=== PATIENT | female | born 1990 | race American Indian/Alaskan Native ===

== ENCOUNTER 2019-09-05 11:38 | Emergency (ER) | payer SELFPAY ==
--- NOTE | 2019-09-05 12:09 | ER ---
Nurse's Notes [facility] Name: Umberto Benson Age: 29 yrs Sex: Female : 1990 Arrival Date: 09/05/2019 Time: 11:42 Bed 12 Private MD: Diagnosis: Acute sinusitis;Acute upper respiratory infection, unspecified Presentation: 09/05 11:48 Presenting complaint: Patient states: I have been sick for 2.5 weeks, now still having la1 fever, ear pain, [place]. Transition of care: patient was not received from another setting of care. Onset of symptoms was September 05, 2019. Risk Assessment: Do you want to hurt yourself or someone else? Patient reports no desire to harm self or others. Initial Sepsis Screen: Does the patient meet any 2 criteria? No. Patient's initial sepsis screen is negative. Does the patient have a suspected source of infection? No. Patient's initial sepsis screen is negative. Care prior to arrival: None. 11:48 Method Of Arrival: Ambulatory la1 11:48 Acuity: NEVILLE 4 la1 Triage Assessment: 12:28 General: Appears in no apparent distress. EENT: No deficits noted. 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 - Social history:: Smoking status: Patient/guardian denies using tobacco. - Ebola Screening: : No symptoms or risks identified at this time. Screenin:04 Abuse screen: Denies threats or abuse. Nutritional screening: No deficits noted. la1 Tuberculosis screening: No symptoms or risk factors identified. Fall Risk None identified. Assessment: 12:04 General: Appears in no apparent distress. Behavior is calm, cooperative. Pain: la1 Complains of pain in face, right ear and left ear. Neuro: Level of Consciousness is awake, alert, obeys commands, Oriented to person, place, time, situation. Cardiovascular: Capillary refill < 3 seconds Patient's skin is warm and dry. Respiratory: Airway is patent Respiratory effort is even, unlabored, Respiratory pattern is regular, symmetrical. GI: No signs and/or symptoms were reported involving the gastrointestinal system. : No signs and/or symptoms were reported regarding the genitourinary system. Vital Signs: 11:49 BP 148 / 108; Pulse 74; Resp 16; Temp 98.4; Pulse Ox 100% on R/A; la1 ED Course: 11:42 Patient arrived in ED. as 11:48 Triage completed. la1 11:49 Arm band placed on left wrist. la1 11:52 Chiqui Parsons, RN is Primary Nurse. iw 11:54 Long Ambriz [facility] is [facility]. jr8 11:54 Kevin Dennison MD is Attending Physician. jr8 12:04 Patient has correct armband on for positive identification. la1 12:28 No provider procedures requiring assistance completed. Patient did not have IV access iw during this emergency room visit. Administered Medications: 12:28 Drug: predniSONE 60 mg Route: PO; iw Outcome: 12:08 Discharge ordered by . jr8 12:28 Discharged to home ambulatory, with family. iw 12:28 Condition: good 12:28 Discharge instructions given to patient, family, Instructed on discharge instructions, follow up and referral plans. medication usage, Demonstrated understanding of instructions, follow-up care, medications, Prescriptions given X 2. 12:28 Patient left the ED. iw Signatures: Amparo Curry as Chiqui Parsons, RN CHERYL iw Long Ambriz PA PA [facility] Ben Lua RN RN la1
--- NOTE | 2019-09-05 12:09 | EDPHYS ---
Physician Documentation [facility] Name: Umberto Benson Age: 29 yrs Sex: Female : 1990 Arrival Date: 09/05/2019 Time: 11:42 Bed 12 Private MD: ED Physician Kevin Dennison HPI: 09/05 12:10 This 29 yrs old Other Female presents to ER via Ambulatory with complaints of Ear Pain. jr8 12:11 Patient stated that she has been coughing, has had sinus congestion, fever, sinus pain, jr8 and ear pain for two weeks. OTC medications not relieving it. Severity of symptoms: At their worst the symptoms were moderate in the emergency department the symptoms are unchanged. The patient has not experienced similar symptoms in the past. The patient has not recently seen a physician. 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 - Social history:: Smoking status: Patient/guardian denies using tobacco. - Ebola Screening: : No symptoms or risks identified at this time. ROS: 12:11 Eyes: Negative for injury, pain, redness, and discharge, Neck: Negative for injury, jr8 pain, and swelling, Cardiovascular: Negative for chest pain, palpitations, and edema, Abdomen/GI: Negative for abdominal pain, nausea, vomiting, diarrhea, and constipation, Back: Negative for injury and pain, MS/Extremity: Negative for injury and deformity, Skin: Negative for injury, rash, and discoloration, Neuro: Negative for headache, weakness, numbness, tingling, and seizure. 12:11 Constitutional: Positive for fatigue, fever. 12:11 ENT: Positive for rhinorrhea, sinus congestion, sinus pain. 12:11 Respiratory: Positive for cough, with green sputum, Negative for shortness of breath, wheezing. Exam: 12:11 Eyes: Pupils equal round and reactive to light, extra-ocular motions intact. Lids and jr8 lashes normal. Conjunctiva and sclera are non-icteric and not injected. Cornea within normal limits. Periorbital areas with no swelling, redness, or edema. ENT: Nares patent. No nasal discharge, no septal abnormalities noted. Tympanic membranes are normal and external auditory canals are clear. Oropharynx with no redness, swelling, or masses, exudates, or evidence of obstruction, uvula midline. Mucous membranes moist. Neck: Trachea midline, no thyromegaly or masses palpated, and no cervical lymphadenopathy. Supple, full range of motion without nuchal rigidity, or vertebral point tenderness. No Meningismus. Cardiovascular: Regular rate and rhythm with a normal S1 and S2. No gallops, murmurs, or rubs. Normal PMI, no JVD. No pulse deficits. Respiratory: Lungs have equal breath sounds bilaterally, clear to auscultation and percussion. No rales, rhonchi or wheezes noted. No increased work of breathing, no retractions or nasal flaring. Abdomen/GI: Soft, non-tender, with normal bowel sounds. No distension or tympany. No guarding or rebound. No evidence of tenderness throughout. Back: No spinal tenderness. No costovertebral tenderness. Full range of motion. Skin: Warm, dry with normal turgor. Normal color with no rashes, no lesions, and no evidence of cellulitis. MS/ Extremity: Pulses equal, no cyanosis. Neurovascular intact. Full, normal range of motion. Neuro: Awake and alert, GCS 15, oriented to person, place, time, and situation. Cranial nerves II-XII grossly intact. Motor strength 5/5 in all extremities. Sensory grossly intact. Cerebellar exam normal. Normal gait. Vital Signs: 11:49 BP 148 / 108; Pulse 74; Resp 16; Temp 98.4; Pulse Ox 100% on R/A; la1 MDM: 11:54 Patient medically screened. [facility] 12:07 Data reviewed: vital signs, nurses notes, and as a result, I will discharge patient. jr8 Data interpreted: Pulse oximetry: on room air is 100 %. Interpretation: normal. Counseling: I had a detailed discussion with the patient and/or guardian regarding: the historical points, exam findings, and any diagnostic results supporting the discharge/admit diagnosis, the need for outpatient follow up, a family practitioner, to return to the emergency department if symptoms worsen or persist or if there are any questions or concerns that arise at home. Administered Medications: 12:28 Drug: predniSONE 60 mg Route: PO; Disposition: 17:51 Co-signature as Attending Physician, Kevin Dennison MD Did not see or evaluate patient. ps1 Chart signed for administrative purposes. Not an endorsement of care. . Disposition: 09/05/19 12:08 Discharged to Home. Impression: Acute sinusitis, Acute upper respiratory infection, unspecified. - Condition is Stable. - Discharge Instructions: Sinusitis, Adult, Upper Respiratory Infection, Adult. - Prescriptions for labetalol 100 mg Oral tablet - take 1 tablet by ORAL route 2 times per day; 60 tablet. Prednisone 20 mg Oral Tablet - take 1 tablet by ORAL route once daily for 5 days; 5 tablet. Zithromax Z- Cedric 250 mg Oral Tablet - take 1 tablet by ORAL route as directed for 5 days Day 1 - take two (2) tablets one time. Day 2, 3, 4 , 5 take one (1) tablet once daily.; 6 tablet. - Medication Reconciliation Form, Thank You Letter, Antibiotic Education, Prescription Opioid Use form. - Follow up: Private Physician; When: 5 - 6 days; Reason: Recheck today's complaints, Continuance of care, Re-evaluation by your physician. - Problem is new. - Symptoms have improved. Signatures: Chiqui Parsons, RN RN Long Aponte PA PA jr8 Ben Lua RN RN la1 Kevin Dennison MD MD ps1 Corrections: (The following items were deleted from the chart) 12:28 12:08 09/05/2019 12:08 Discharged to Home. Impression: Acute sinusitis; Acute upper iw respiratory infection, unspecified. Condition is Stable. Forms are Medication Reconciliation Form, Thank You Letter, Antibiotic Education, Prescription Opioid Use. Follow up: Private Physician; When: 5 - 6 days; Reason: Recheck today's complaints, Continuance of care, Re-evaluation by your physician. Problem is new. Symptoms have improved. jr8
[2019-09-05] MEDS ORDERED: predniSONE 20 MG TAB ONE (12:26)
[2019-09-05 13:05] VITALS: BP 148/108; TEMP 98.4; O2SAT 100
== END 2019-09-05 12:28 | disposition home or self-care (01) ==
LOC: ER 11:38
DX: J06.9 Acute upper respiratory infection, unspecified (principal); J01.90 Acute sinusitis, unspecified
CPT/HCPCS: 99283; J7512

== ENCOUNTER 2020-10-02 22:28 | Emergency (ER) | payer OTHER, SELFPAY ==
--- OUTSIDE RECORDS SUMMARY | 2020-10-02 22:30 | XMS REPORT ---
:1990 Author Organization [facility] Address [address] [place] [place] [address] Care Team Providers Name Role Phone Obey Mayers Unavailable [phone] PROBLEMS Type Condition ICD9-CM [id number] Onset Condition SNOMED Code Notes Code Code Dates Status Problem Essential I10 Active 75632085 hypertension Problem Social anxiety F40.10 Active 61647187 disorder Problem Moderate asthma, J45.909 Active 972838006 unspecified whether complicated, unspecified whether persistent Problem Body mass index Z68.43 Active 983624038 (BMI) 50.0-59.9, adult Problem Morbid (severe) E66.01 Active 489273675 obesity due to excess calories Problem Mixed E78.2 Active 671966941 hyperlipidemia Problem Current moderate F32.1 Active 38056615 episode of major depressive disorder without prior episode ALLERGIES No Known Allergies ENCOUNTERS from 1990 to 2020-07-09 Encounter Location Date Provider Diagnosis [facility] [address], [place] [address] IMMUNIZATIONS No Information SOCIAL HISTORY Tobacco Use: Social History Observation Description Date Details (start date - stop date) Never Smoker Sex Assigned At : Social History Observation Description Sex Assigned At Unknown PHQ9 Question Answer Notes Little interest or pleasure in doing things Nearly every day Feeling down, depressed, or hopeless Nearly every day Trouble falling or staying asleep or sleeping too much More than half the days Feeling tired or having little energy Several days Poor appetite or overeating More than half the days Feeling bad about yourself, or that you are a failure, More than half the days or have let yourself or your family down Trouble concentrating on things, such as reading the Several days newspaper or watching television Moving or speaking so slowly that other people could Not at all have noticed; or the opposite, being so fidgety or restless that you have been moving around a lot more than usual Total Score 14 Interpretation Moderate Depression Thoughts that you would be better off or of Not at all hurting yourself in some way Alcohol Screen Question Answer Notes Did you have a drink containing alcohol in the past year? No Points 0 Interpretation Negative Tobacco Use/Smoking Question Answer Notes Are you a never smoker REASON FOR REFERRAL No Information VITAL SIGNS No information MEDICATIONS Medication SIG (Take, Route, Start Date End Date Status Frequency, Duration) ProAir HFA 108 (90 Base) MCG/ACT 2 puffs as needed Active Inhalation every 6 hrs PRN COugh, Wheezing or shortness of breath for 30 Wellbutrin SR 150 MG 1 tablet in the morning Active Orally Once a day for 30 Hydrochlorothiazide 25 MG 1 tablet in the morning Active Orally Once a day for 30 day(s) Losartan Potassium 100 MG 1 tablet Orally Once a Active day for 30 day(s) PROCEDURES No Information RESULTS No Results REASON FOR VISIT f/u call, Wellbutrin MEDICAL (GENERAL) HISTORY Type Description Date Surgical History C sections 2009 Goals Section No Information Health Concerns No Information MEDICAL EQUIPMENT No Information MENTAL STATUS No Information FUNCTIONAL STATUS No Information ASSESSMENTS No Information PLAN OF TREATMENT Medication Medication Name Sig Start Date Stop Date ProAir HFA 108 (90 Base) MCG/ACT 2 puffs as needed Inhalation every 6 hrs PRN COugh, Wheezing or shortness of breath for 30 Hydrochlorothiazide 25 MG 1 tablet in the morning Orally Once a day for 30 day(s) Losartan Potassium 100 MG 1 tablet Orally Once a day for 30 day(s) Wellbutrin SR 150 MG 1 tablet in the morning Orally Once a day for 30 Next Appt Details Provider Name:Obey Mayers 2020-07-15 0 9:00:00 AM, [address], [place], [address], Provider Name:Obey Mayers 2020-07-22 0 9:40:00 AM, [address], [place], [address], Provider Name:Obey Mayers 2020 0 2:00:00 PM, [address], [place], [address], Insurance Providers Payer Name Payer Payer Insured Patient Coverage Coverage End Address Phone Name Relationship to Start Date Julio e Insured [facility] [phone] White,Umberto self [address] [address]
--- OUTSIDE RECORDS SUMMARY | 2020-10-02 22:30 | XMS REPORT | Continuity of Care Document ---
:1990 Author Organization [facility] t Address [address] [place] [address] Care Team Providers Name Role Phone Unavailable Unavailable Unavailable Payers Payer Name Policy Type Policy Number Effective Date Expiration Date S ource Problems This patient has no known problems. Allergies, Adverse Reactions, Alerts Allergy Allergy Status Severity Reaction(s) Onset Inactive Treating Comm ents Source Name Type Date Date Clinician No Known DA Active U [facility]ie 05-27 [facility] 00:00: [facility] [address] Medications Ordered Filled Start Stop Current Ordering Indication Dosage Frequency Signature Comments Components Source Medication Medication Date Date Medication? Clinician (SIG) Name Name Losartan Losartan Yes Obey [address] Potassium Potassium [facility] Procedures This patient has no known procedures. Encounters Start End Encounter Admission Attending Care Care Encounter Source Date/Time Date/Time Type Type Clinicians Facility Department ID 2020-07-08 2020-07-08 Outpatient [facility] [id number] 2020-06-11 2020-06-11 Outpatient Savita Barneyt [id number] [facility] 08:24:00 08:24:00 [employer] [place] [facility] Medicine Medicine [facility] 2020-06-11 2020-06-11 Outpatient Savita [place] [id number] 08:23:00 08:23:00 [email or web address] Clinics 2020-05-27 2020-05-27 Outpatient [facility] [place] [id number] 16:56:00 16:56:00 [email or web address] [place] [facility] ent Clinics 2020-05-07 2020-05-07 Outpatient Savita [place] [id number] 15:30:00 15:30:00 [facility] 2020-04-22 2020-04-22 Outpatient [facility] [place] [id number] 10:15:00 10:15:00 [facility] Clin[facility] 2020-03-21 2020-03-21 Outpatient Savita [place] [id number] [facility] 14:15:00 14:15:00 [facility] [place] [facility] Clinics Results Test Description Test Time Test Comments Results Result Comments Source CBC W/AUTO DIFF 2020-09-26 09:57:00 Test Item Value Reference Range Interpretation Comme nts WHITE BLOOD CELL (test code = WBC) 9.8 x10 3/uL 3.2-11.5 N RED BLOOD CELL (test code = RBC) 4.20 x10(6)/m 3.70-5.10 N HEMOGLOBIN (test code = HGB) 9.5 g/dL 12.0-15.0 L HEMATOCRIT (test code = HCT) 32.9 % 35.7-44.8 L MEAN CELL VOLUME (test code = MCV) 78 fL 80-100 L MEAN CELL HGB (test code = MCH) 22.6 pg 26.2-33.8 L MEAN CELL HGB CONCENTRATION (test code = MCHC) 28.9 g/dL 30.0-34 .0 L RED CELL DISTRIBUTION WIDTH (test code = RDW) 16.5 % 11.3-14. 5 H PLATELET COUNT (test code = PLT) 349 x10 3/uL 130-408 N MEAN PLATELET VOLUME (test code = MPV) 8.6 fL 8.6-12.6 N NEUTROPHIL % (test code = NT%) 72.9 % 40.0-70.0 H IMMATURE GRANULOCYTE % (test code = IG%) 0.4 % 0.0-2.0 N LYMPHOCYTE % (test code = LY%) 18.2 % 20-40 L MONOCYTE % (test code = MO%) 7.4 % 1-10 N EOSINOPHIL % (test code = EO%) 0.6 % 0.0-5.0 N BASOPHIL % (test code = BA%) 0.5 % 0.0-1.0 N NUCLEATED RBC % (test code = NRBC%) 0.0 % 0.0-0.9 N NEUTROPHIL # (test code = NT#) 7.1 x10 3/uL 1.6-7.2 N LYMPHOCYTE # (test code = LY#) 1.78 x10 3/uL 1.1-2.7 N MONOCYTE # (test code = MO#) 0.7 x10 3/uL 0.3-0.8 N EOSINOPHIL # (test code = EO#) 0.1 x10 3/uL 0.0-0.5 N BASOPHIL # (test code = BA#) 0.1 x10 3/uL 0.0-0.1 N CBC W/AUTO [id number] 09:48:00 Test Item Value Reference Range Interpretation Comments WHITE BLOOD CELL (test code = 9.8 x10 3/uL 3.2-11.5 N WBC) RED BLOOD CELL (test code = 4.20 x10(6)/m 3.70-5.10 N RBC) HEMOGLOBIN (test code = HGB) 9.5 g/dL 12.0-15.0 L HEMATOCRIT (test code = HCT) 32.9 % 35.7-44.8 L MEAN CELL VOLUME (test code = 78 fL 80-100 L MCV) MEAN CELL HGB (test code = MCH) 22.6 pg 26.2-33.8 L MEAN CELL HGB CONCENTRATION 28.9 g/dL 30.0-34.0 L (test code = MCHC) RED CELL DISTRIBUTION WIDTH % 11.3-14.5 (test code = RDW) PLATELET COUNT (test code = x10 3/uL 130-408 PLT) MEAN PLATELET VOLUME (test code 8.6 fL 8.6-12.6 N = MPV) NEUTROPHIL % (test code = NT%) % 40.0-70.0 LYMPHOCYTE % (test code = LY%) % 20-40 MONOCYTE % (test code = MO%) % 1-10 EOSINOPHIL % (test code = EO%) % 0.0-5.0 BASOPHIL % (test code = BA%) % 0.0-1.0 NUCLEATED RBC % (test code = % 0.0-0.9 NRBC%) NEUTROPHIL # (test code = NT#) x10 3/uL 1.6-7.2 LYMPHOCYTE # (test code = LY#) x10 3/uL 1.1-2.7 MONOCYTE # (test code = MO#) x10 3/uL 0.3-0.8 EOSINOPHIL # (test code = EO#) x10 3/uL 0.0-0.5 BASIC METABOLIC [id number] 09:40:00 Test Item Value Reference Range Interpretation Comments SODIUM (test code 137 mmol/L 135-145 N = NA) POTASSIUM (test 3.8 mmol/L 3.6-5.0 N code = K) CHLORIDE (test 106 mmol/L 101-111 N code = CL) CARBON DIOXIDE 23 mmol/L 21-31 N (test code = CO2) GLUCOSE (test code 95 mg/dl 70-100 N = GLU) BLOOD UREA 11 mg/dl 6-20 N NITROGEN (test code = BUN) GLOMERULAR >=60 max >60 The estimated FILTRATION RATE estimate glomerular (test code = GFR) filtration rate is computed usingpatient ra ce, age (>18), sex, and serum creatinin e. If anyof the neede d data elements a re missing the Laboratory leonid ot compute an estimation of t he glomerular filtration rate . CREATININE (test 1.05 mg/dL 0.44-1.03 H code = CREAT) CALCIUM (test code 8.6 mg/dL 8.5-10.5 N = CA) [id number] 06:55:00 Test Item Value Reference Range Interpretation Comments GLUBED (test code = GLUBED) 93 MG/DL 70-105 N [id number] 01:04:00 Test Item Value Reference Range Interpretation Comments GLUBED (test code = GLUBED) 94 MG/DL 70-105 N [id number] 15:42:00 Test Item Value Reference Range Interpretation Comments GLUBED (test code = GLUBED) 83 MG/DL 70-105 N SURGICAL [id number] 15:40:00 Test Item Value Reference Range Interpretation Comments SURGICAL SPECIMENS (test code = SURG) RUN DATE: 09/25/20 [facility] - LAB PAGE 1 RUN TIME: 1541 Specimen Inquiry RUN USER: INTERFACE PATIENT : CELY GRIMALDO LOC: N.6S U #: [id number] AGE/SX: 30/ ROOM: [facility] RE09/24/20REG DR: Robbin Pearson MD : 89 BED: 1 DIS: STATUS: ADM IN TLOC: SPEC #: [id number] RECD: 09/24/201112 STATUS: SOUT REQ #: [id number] SHEMAR: 09/24/20-[address]: Robbin Pearson MD ENTERED: 09/24/20121 SP TYPE: SURG OTHR DR: ORDERED: LEVEL II, PATH SPEC, H E STAIN TISSUES: A. STOMACH, GASTRIC SLEEVE - Stomach-gastric sleeve gastrectomy CLINICAL HISTORY Diagnosis/Clinical Data: Obesity Operative Procedure: Laparoscopic gastrectomy FINAL DIAGNOSIS Stomach, laparoscopic sleeve gastrectomy: Benign stomach wall tissue with mild submucosal congestion. Electronically signed by: Amish Yan MD 09/25/2020 GROSS DESCRIPTION Received fresh labeled "stomach-gastric sleeve" is a 13.0 x 4.5 x 2.5 cm partial gastrectomy specimen. The serosa is culver-pink and smooth. The mucosa is pink-red with normal rugal folds. There are no masses or lesions. Airframe Technician sections are submitted in one cassette labeled A1. TR 09/24/2020 04:55 PM MICROSCOPIC DESCRIPTION Sections of the stomach remnant show a mucosa with compact glands that are free of inflammation. The submucosa shows mild congestion. The muscularis propria is unremarkable. No distinct evidence of malignancy is identified. --- Signed SIGNATURE ON FILE Amish Yan MD 09/25/20 1540 END OF REPORT [id number] 12:22:00 Test Item Value Reference Range Interpretation Comments GLUBED (test code = GLUBED) 98 MG/DL 70-105 N BASIC METABOLIC [id number] 06:35:00 Test Item Value Reference Range Interpretation Comments SODIUM (test code 135 mmol/L 135-145 N = NA) POTASSIUM (test 3.6 mmol/L 3.6-5.0 N code = K) CHLORIDE (test 104 mmol/L 101-111 N code = CL) CARBON DIOXIDE 23 mmol/L 21-31 N (test code = CO2) GLUCOSE (test code 109 mg/dl 70-100 H = GLU) BLOOD UREA 7 mg/dl 6-20 N NITROGEN (test code = BUN) GLOMERULAR >=60 max >60 The estimated FILTRATION RATE estimate glomerular (test code = GFR) filtration rate is computed usingpatient ra ce, age (>18), sex, and serum creatinin e. If anyof the neede d data elements a re missing the Laboratory leonid ot compute an estimation of t he glomerular filtration rate . CREATININE (test 0.86 mg/dL 0.44-1.03 N code = CREAT) CALCIUM (test code 8.3 mg/dL 8.5-10.5 L = CA) [id number] 06:35:00 Test Item Value Reference Range Interpretation Comments PHOSPHOROUS (test code = PHOS) 3.6 mg/dl 2.5-4.6 N [id number] 06:35:00 Test Item Value Reference Range Interpretation Comments MAGNESIUM (test code = MAG) 2.0 mg/dl 1.8-2.5 N CBC W/AUTO [id number] 06:17:00 Test Item Value Reference Range Interpretation Comments WHITE BLOOD CELL (test code = 12.9 x10 3/uL 3.2-11.5 H WBC) RED BLOOD CELL (test code = 4.14 x10(6)/m 3.70-5.10 N RBC) HEMOGLOBIN (test code = HGB) 9.6 g/dL 12.0-15.0 L HEMATOCRIT (test code = HCT) 31.7 % 35.7-44.8 L MEAN CELL VOLUME (test code = 77 fL 80-100 L MCV) MEAN CELL HGB (test code = MCH) 23.2 pg 26.2-33.8 L MEAN CELL HGB CONCENTRATION 30.3 g/dL 30.0-34.0 N (test code = MCHC) RED CELL DISTRIBUTION WIDTH 16.2 % 11.3-14.5 H (test code = RDW) PLATELET COUNT (test code = 348 x10 3/uL 130-408 N PLT) MEAN PLATELET VOLUME (test code 8.5 fL 8.6-12.6 L = MPV) NEUTROPHIL % (test code = NT%) 79.0 % 40.0-70.0 H IMMATURE GRANULOCYTE % (test 0.5 % 0.0-2.0 N code = IG%) LYMPHOCYTE % (test code = LY%) 12.9 % 20-40 L MONOCYTE % (test code = MO%) 7.4 % 1-10 N EOSINOPHIL % (test code = EO%) 0.0 % 0.0-5.0 N BASOPHIL % (test code = BA%) 0.2 % 0.0-1.0 N NUCLEATED RBC % (test code = 0.0 % 0.0-0.9 N NRBC%) NEUTROPHIL # (test code = NT#) 10.2 x10 3/uL 1.6-7.2 H LYMPHOCYTE # (test code = LY#) 1.67 x10 3/uL 1.1-2.7 N MONOCYTE # (test code = MO#) 1.0 x10 3/uL 0.3-0.8 H EOSINOPHIL # (test code = EO#) 0.0 x10 3/uL 0.0-0.5 N BASOPHIL # (test code = BA#) 0.0 x10 3/uL 0.0-0.1 N Novel Coronavirus 2019 [id number] 11:11:00 Test Item Value Reference Range Interpretation Comments Novel Coronavirus Not Detected Not Detected Testing wa s performed 2019 Inhouse using the Aptim a (test code = SARS-CoV-2 assa y.This COVNONPUI) nucleic acid amplification t est was developed and itsperformance characteristics determined by [facility]. Nucleic acid amplification t ests include PCRand TMA. This test has not be en FDA cleared or appr jessee.This test has been a uthorized by FDA under an Emergency UseAuthorizatio n (EUA). This test is on ly authorized fort he duration of anabel e the declaration pancho t circumstancesex ist justifying the authorization o f the emergency use o fin vitro diagnostic test s for detection of SA RS-CoV-2 virusand/or jake gnosis of COVID-19 infect ion under jukbdkg761(b)(1 ) of the Act, 21 U.S.C. 360bbb-3(b) (1) , unless theauthorizatio n is terminated or r evoked sooner.When jake gnostic testing is nega tive, the possibility of afalse negative result should be considered in t he contextof a pat ient's recent exposure s and the presence ofclin ical signs and symptoms co nsistent with COVID-19. Anindividual wi thout symptoms of COV ID-19 and who is notshedd ing SARS-CoV-2 viru s would expect to have a negative(not de tected) result in this assay.Positive results are indicative of the presence ofSARS -CoV-2 RNA, clinical c orrelation with patient hi storyand other diagnosti c information is necessary to determinepat ient infection statu s. Positive result s do not rule outbacteri al infection or co -infection with other viru ses. Negative result s do not preclude SARS-C oV-2 infection andsh ould not be used as the sole basis for patient managementdecis ions. Negative result s must be combined with otherclinical observations, p atient history, and epidemiological informatio n. Detection o f SARS-CoV-2 RNA may be affected bysamp le collection meth ods, storage conditi ons, and/or stageof infection. Viral RNA mut ations, vaccinations, antiviraltherap eutics, antibiotics, chemotherapeuti c orimmunosuppres kervin drugs have not been e valuated for effectson d etection. Results are for the identification of SARS-CoV-2 RNA usingthe Larry M2000 Sy stem under the FDA Emergen cy UseAuthorizatio n. The testing is perf ormed by personneltraine d in the procedures for the Larry M2000 molecular diagnostic SARS-CoV-2 assa y in vitro.Specimen Source: Nasopharyngeal (EXTRACTOR LOADER AND UNLOADER) Swab Novel Coronavirus 2018 [id number] 11:11:00 Test Item Value Reference Range Interpretation Comments Novel Coronavirus Not Detected Not Detected Testing wa s performed 2018 Inhouse using the Aptim a (test code = SARS-CoV-2 assa y.This COVNONPUI) nucleic acid amplification t est was developed and itsperformance characteristics determined by [facility]. Nucleic acid amplification t ests include PCRand TMA. This test has not be en FDA cleared or appr jesese.This test has been a uthorized by FDA under an Emergency UseAuthorizatio n (EUA). This test is on ly authorized fort he duration of anabel e the declaration pancho t circumstancesex ist justifying the authorization o f the emergency use o fin vitro diagnostic test s for detection of SA RS-CoV-2 virusand/or jake gnosis of COVID-19 infect ion under (b)(1 ) of the Act, 21 U.S.C. 360bbb-3(b) (1) , unless theauthorizatio n is terminated or r evoked sooner.When jake gnostic testing is nega tive, the possibility of afalse negative result should be considered in t he contextof a pat ient's recent exposure s and the presence ofclin ical signs and symptoms co nsistent with COVID-19. Anindividual wi thout symptoms of COV ID-19 and who is notshedd ing SARS-CoV-2 viru s would expect to have a negative(not de tected) result in this assay.Positive results are indicative of the presence ofSARS -CoV-2 RNA, clinical c orrelation with patient hi storyand other diagnosti c information is necessary to determinepat ient infection statu s. Positive result s do not rule outbacteri al infection or co -infection with other viru ses. Negative result s do not preclude SARS-C oV-2 infection andsh ould not be used as the sole basis for patient managementdecis ions. Negative result s must be combined with otherclinical observations, p atient history, and epidemiological informatio n. Detection o f SARS-CoV-2 RNA may be affected bysamp le collection meth ods, storage conditi ons, and/or stageof infection. Viral RNA mut ations, vaccinations, antiviraltherap eutics, antibiotics, chemotherapeuti c orimmunosuppres kervin drugs have not been e valuated for effectson d etection. Results are for the identification of SARS-CoV-2 RNA usingthe Delectable M2000 Sy stem under the FDA Emergen cy UseAuthorizatio n. The testing is perf ormed by personneltraine d in the procedures for the [employer] molecular diagnostic SARS-CoV-2 assa y in vitro.Specimen Source: Nasopharyngeal (EXTRACTOR LOADER AND UNLOADER) Swab HCG SERUM [id number] 14:55:00 Test Item Value Reference Range Interpretation Comments HCG SERUM QUAL NEGATIVE NEGATIVE This is a radha litative (test code = HCGQL) screenin g test.The quantitative Bh cg may be helpful.Weakly positive results should be repeated in 48 hours. COMPREHENSIVE METABOLIC [id number] 14:45:00 Test Item Value Reference Range Interpretation Comments SODIUM (test code = 137 mmol/L 135-145 N NA) POTASSIUM (test 4.0 mmol/L 3.6-5.0 N code = K) CHLORIDE (test code 105 mmol/L 101-111 N = CL) CARBON DIOXIDE 23 mmol/L 21-31 N (test code = CO2) GLUCOSE (test code 79 mg/dl 70-100 N = GLU) BLOOD UREA NITROGEN 10 mg/dl 6-20 N (test code = BUN) GLOMERULAR >=60 max >60 The estimated FILTRATION RATE estimate glomerular (test code = GFR) filtration rate is computed usingpatient ra ce, age (>18), sex, and serum creatinin e. If anyof the ne eded data elements a re missing the Laboratory leonid ot compute an estimation of t he glomerular filtration rate . CREATININE (test 0.68 mg/dL 0.44-1.03 N code = CREAT) TOTAL PROTEIN (test 7.4 g/dL 6.7-8.2 N code = PROT) ALBUMIN (test code 3.5 g/dL 3.2-5.5 N = ALB) CALCIUM (test code 9.2 mg/dL 8.5-10.5 N = CA) BILIRUBIN TOTAL 0.50 mg/dL 0.2-1.3 N (test code = BILT) SGOT/AST (test code 15 U/L 10-42 N = AST) SGPT/ALT (test code 16 U/L 10-60 N = ALT) ALKALINE 45 U/L 42-121 N PHOSPHATASE (test code = ALKP) - XR CHEST 2 [id number] 14:43:00 [facility] WHITE[facility] CELY E : 1990 Sex: FPatient Name: CELY GRIMALDO Unit No: [id number] EXAMS: CPT: [id number] XR CHEST 2 [id number] To: Preop PA and lateral chest without comparison demonstrated the heart size and mediastinum to within normal limits. The lungs are free of infiltrates or nodules. The bones are within normal limits. IMPRESSION: No radiographic abnormalities. at 1443 Reported and signed by: Cayden Montemayor MD CC: Robbin Pearson MD; Jaquan Chase MDTechnologist: MARZENA Vasquez Fluoro Time: DAP (Gy m2): Air Kerma (mGy): Trscr Dt/Tm: 09/19/2020 (144) by:MeñoK Orig Print D/T: S: 09/19/2020 (144)BATCH NO: N/A Name: CELY GRIMALDO [facility] Phys:[email or web address] - Jaquan Chase [address] [place] [address] : 1990 Age: 30 Sex: F [place], [place] [address] Loc: N.SRG Exam Date: 09/19/2020 Status: PRE IN PH: FAX: PAGE 1 Signed ReportCOMPREHENSIVE METABOLIC [id number] 14:38:00 Test Item Value Reference Range Interpretation Comments SODIUM (test code = 137 mmol/L 135-145 N NA) POTASSIUM (test 4.0 mmol/L 3.6-5.0 N code = K) CHLORIDE (test code 105 mmol/L 101-111 N = CL) CARBON DIOXIDE 23 mmol/L 21-31 N (test code = CO2) GLUCOSE (test code 79 mg/dl 70-100 N = GLU) BLOOD UREA NITROGEN 10 mg/dl 6-20 N (test code = BUN) GLOMERULAR >=60 max >60 The estimated FILTRATION RATE estimate glomerular (test code = GFR) filtration rate is computed usingpatient ra ce, age (>18), sex, and serum creatinin e. If anyof the ne eded data elements a re missing the Laboratory leonid ot compute an estimation of t he glomerular filtration rate . CREATININE (test 0.68 mg/dL 0.44-1.03 N code = CREAT) TOTAL PROTEIN (test g/dL 6.7-8.2 code = PROT) ALBUMIN (test code g/dL 3.2-5.5 = ALB) CALCIUM (test code 9.2 mg/dL 8.5-10.5 N = CA) BILIRUBIN TOTAL mg/dL 0.2-1.3 (test code = BILT) SGOT/AST (test code U/L 10-42 = AST) SGPT/ALT (test code U/L 10-60 = ALT) ALKALINE U/L 42-121 PHOSPHATASE (test code = ALKP) PROTHROMBIN [id number] 14:30:00 Test Item Value Reference Range Interpretation Comments PROTHROMBIN TIME 13.4 SECONDS 10.5-13.4 N PATIENT (test code = PTP) INTERNATIONAL NORMAL 1.1 The INR is to be RATIO (test code = used only for INR) monitoring oral anticoagulantth erap y. INDICATION IN R VALUE ---- ---- ---- --------1. Prophylaxis, de ep venous thrombos is, 2.0 - 2.5 including high-risk surgery.2. Prophylaxis, de ep venous thrombos is, 2.0 - 3.0 hip surgery, treatment for d eep venous thromb osis or pulmonary prevention of systemic emboli sm in patients wit h valvular heart disease, atrial fibrillation, tissue heart va lve, or acute myocar dial infarction.3. Mechanical prosthesis hear t valves, 3.0 - 4.5 recurrent syste marcos embolism. THROMBOPLASTIN TIME [id number] 14:30:00 Test Item Value Reference Range Interpretation Comments THROMBOPLASTIN TIME PARTIAL (test 37 SECONDS 25-38 N code = PTT) CBC W/AUTO [id number] 14:27:00 Test Item Value Reference Range Interpretation Comments WHITE BLOOD CELL (test code = 7.5 x10 3/uL 3.2-11.5 N WBC) RED BLOOD CELL (test code = 4.37 x10(6)/m 3.70-5.10 N RBC) HEMOGLOBIN (test code = HGB) 10.0 g/dL 12.0-15.0 L HEMATOCRIT (test code = HCT) 34.1 % 35.7-44.8 L MEAN CELL VOLUME (test code = 78 fL 80-100 L MCV) MEAN CELL HGB (test code = MCH) 22.9 pg 26.2-33.8 L MEAN CELL HGB CONCENTRATION 29.3 g/dL 30.0-34.0 L (test code = MCHC) RED CELL DISTRIBUTION WIDTH 15.6 % 11.3-14.5 H (test code = RDW) PLATELET COUNT (test code = 329 x10 3/uL 130-408 N PLT) MEAN PLATELET VOLUME (test code 8.3 fL 8.6-12.6 L = MPV) NEUTROPHIL % (test code = NT%) 62.8 % 40.0-70.0 N IMMATURE GRANULOCYTE % (test 0.4 % 0.0-2.0 N code = IG%) LYMPHOCYTE % (test code = LY%) 29.4 % 20-40 N MONOCYTE % (test code = MO%) 5.7 % 1-10 N EOSINOPHIL % (test code = EO%) 1.3 % 0.0-5.0 N BASOPHIL % (test code = BA%) 0.4 % 0.0-1.0 N NUCLEATED RBC % (test code = 0.0 % 0.0-0.9 N NRBC%) NEUTROPHIL # (test code = NT#) 4.7 x10 3/uL 1.6-7.2 N LYMPHOCYTE # (test code = LY#) 2.21 x10 3/uL 1.1-2.7 N MONOCYTE # (test code = MO#) 0.4 x10 3/uL 0.3-0.8 N EOSINOPHIL # (test code = EO#) 0.1 x10 3/uL 0.0-0.5 N BASOPHIL # (test code = BA#) 0.0 x10 3/uL 0.0-0.1 N CBC W/AUTO [id number] 14:19:00 Test Item Value Reference Range Interpretation Comments WHITE BLOOD CELL (test code = 7.5 x10 3/uL 3.2-11.5 N WBC) RED BLOOD CELL (test code = 4.37 x10(6)/m 3.70-5.10 N RBC) HEMOGLOBIN (test code = HGB) 10.0 g/dL 12.0-15.0 L HEMATOCRIT (test code = HCT) 34.1 % 35.7-44.8 L MEAN CELL VOLUME (test code = 78 fL 80-100 L MCV) MEAN CELL HGB (test code = MCH) 22.9 pg 26.2-33.8 L MEAN CELL HGB CONCENTRATION 29.3 g/dL 30.0-34.0 L (test code = MCHC) RED CELL DISTRIBUTION WIDTH % 11.3-14.5 (test code = RDW) PLATELET COUNT (test code = x10 3/uL 130-408 PLT) MEAN PLATELET VOLUME (test code 8.3 fL 8.6-12.6 L = MPV) NEUTROPHIL % (test code = NT%) % 40.0-70.0 LYMPHOCYTE % (test code = LY%) % 20-40 MONOCYTE % (test code = MO%) % 1-10 EOSINOPHIL % (test code = EO%) % 0.0-5.0 BASOPHIL % (test code = BA%) % 0.0-1.0 NUCLEATED RBC % (test code = % 0.0-0.9 NRBC%) NEUTROPHIL # (test code = NT#) x10 3/uL 1.6-7.2 LYMPHOCYTE # (test code = LY#) x10 3/uL 1.1-2.7 MONOCYTE # (test code = MO#) x10 3/uL 0.3-0.8 EOSINOPHIL # (test code = EO#) x10 3/uL 0.0-0.5 SURGICAL [id number] 14:15:00 RUN DATE: 05/29/20 [facility] - LAB PAGE 1 RUN TIME: 1415 Specimen Inquiry RUN USER: INTERFACE PATIENT: CELY GRIMALDO [facility] U #: [id number] AGE/SX: 29/F ROOM: RE05/28/20REG DR: Robbin Pearson MD : [birth year] BED: DIS: STATUS: [facility] TLOC: SPEC #: [id number] RECD: 05/28/20 STATUS: THADDEUSJayant RENAY #: [id number] SHEMAR: 05/28/20-[address]: Robbin Pearson MD ENTERED: 05/28/20578 SP TYPE: SURG OTHR DR: Undefined Provider ORDERED: PATHGM4, PATH SPEC, H E STAIN TISSUES: A. ANTRUM BIOPSY - Antral biopsy CLINICAL HISTORY Diagnosis/Clinical Data: Normal EGD Operative Procedure: EGD FINAL DIAGNOSIS Stomach, antrum, biopsy: Mild chronic inactive gastritis No intestinal metaplasia, dysplasia or carcinoma identified Electronically signed by: Thomas Gardner MD GROSS DESCRIPTION Received in formalin, labeled "antral biopsy", is one piece of culver-pink soft tissue measuring 0.3 cm in greatest dimension. Entirely submitted in one cassette labeled A1. TR 05/28/2020 05:52 PM MICR OSCOPIC DESCRIPTION Sections show antral type gastric mucosa with a mild lymphoplasmacytic inflammatory infiltrate. No Helicobacter organisms are identified on routine hematoxylin and eosin stained slides. No intestinal metaplasia, dysplasia or carcinoma is identified. Signed SIGNATURE ON FILE Thomas Gardner MD 05/29/20 1415 END OF REPORT - US ABDOMEN [id number] 10:21:00Patient Name: CELY GRIMALDO Unit No: [id number] EXAMS: CPT: [id number] US ABDOMEN LTD [id number] History: Abdominal pain Ultrasonography of the abdomen limited was performed. Liver measured 20.5 cm craniocaudally with moderate diffuse fatty infiltration. The gallbladder is within normal limits without any stones or sludge. The wall is within normal limits. Common bile duct measured 4 mm. Pancreas not well-visualized due to bowel gas. Right kidney measured 11.2 x 5.3 x 6.6 cm without any hydronephrosis. IMPRESSION: Hepatomegaly with fatty infiltration. Elect ronically Signed by Cayden Montemayor MD on 05/28/2020 at 1021 Reported and signed by: Cayden Montemayor MD CC: Robbin Pearson MD; Undefined Provider Technologist: Dolly Hong Probe: Trscr Dt/Tm: 05/28/2020 (1021) by:Jacqueline Orig Print D/T: S: 05/28/2020 (1024) BATCH NO: N/A Name: [facility] Phys: Robbin Corbett MD [address] : 1990 Age: 29 Sex: F [place], [place] [address] Loc: N.SRG Exam Date: 05/28/2020 Status: [facility] PH: FAX: PAGE 1 Signed ReportUR HCG [id number] 07:46:00 Test Item Value Reference Range Interpretation Comments UR HCG QUAL (test code = HCGQLU) NEGATIVE NEGATIVE Novel Coronavirus 2018 [id number] 19:08:00 Test Item Value Reference Interpretation Comments Range Novel Not Detected Not Detected Testing was per formed using Coronavirus 2019 the Aptima SARS-CoV-2 Inhouse (test assay.This leora t was developed code = and its perform ance COVNONPUI) characteristics determined by [facility]. This test has not be enFDA cleared or approved. Th is test has been authorized byFDA under an Emergency Us e Authorization ( EUA). This testis only aut horized for the duration of time the declarationthat circumstances exist justifyin g the authorization o fthe emergency use of in vitro diagnostic tests fordetect ion of SARS-CoV-2 viru s and/or diagnosis of COVID-19infecti on under section 564(b)( 1) of the Act, 21 U.S.C.360bbb -3(b)(1), unless the auth orization is terminated orre voked sooner. When diagnostic testing is negative, thepo ssibility of a false negative result should be consideredin the context of a patient's recent exposures and t hepresence of clinical signs and symptoms consistent with COVID-19. An individual with out symptoms of COVID-19 and who is not shedding SARS-C oV-2 virus would expect to have anegative (not detected) result in this assay.Positive results are ind icative of the presence ofSARS -CoV-2 RNA, clinical correl ation with patient history and other diagnostic info rmation is necessary to de terminepatient infection statu s. Positive results do not rule outbacterial in fection or co-infection wi th other viruses. Negati ve results do not preclude SA RS-CoV-2 infection andsh ould not be used as the archie e basis for patient managem entdecisions. Negative result s must be combined with o therclinical observations, p atient history, and epidemiological information. Detection of SA RS-CoV-2 RNA may be affected bysample collection meth ods, storage conditions, and /or stageof infection. Vi ral RNA mutations, vacc inations, antiviraltherap eutics, antibiotics, ch emotherapeutic orimmunosuppres kervin drugs have not been e valuated for effectson detec tion. Results are for the mariia ntification of SARS-CoV-2 RNA usingthe Delectable M2000 Sy stem under the FDA Emergency UseAuthorizatio n. The testing is perf ormed by torri pabon in the procedures for the Delectable M2000 molecular diagnostic SARS-CoV-2 assa y in vitro. Novel Coronavirus 2019 [id number] 19:08:00 Test Item Value Reference Interpretation Comments Range Novel Not Detected Not Detected Testing was per formed using Coronavirus 2019 the Aptima SARS-CoV-2 Inhouse (test assay.This leora t was developed code = and its perform ance COVNONPUI) characteristics determined by [facility]. This test has not be enFDA cleared or approved. Th is test has been authorized byFDA under an Emergency Us e Authorization ( EUA). This testis only aut horized for the duration of time the declarationthat circumstances exist justifyin g the authorization o fthe emergency use of in vitro diagnostic tests fordetect ion of SARS-CoV-2 viru s and/or diagnosis of COVID-19infecti on under section 564(b)( 1) of the Act, 21 U.S.C.360bbb -3(b)(1), unless the auth orization is terminated orre voked sooner. When diagnostic testing is negative, thepo ssibility of a false negative result should be consideredin the context of a patient's recent exposures and t hepresence of clinical signs and symptoms consistent with COVID-19. An individual with out symptoms of COVID-19 and who is not shedding SARS-C oV-2 virus would expect to have anegative (not detected) result in this assay.Positive results are ind icative of the presence ofSARS -CoV-2 RNA, clinical correl ation with patient history and other diagnostic info rmation is necessary to de terminepatient infection statu s. Positive results do not rule outbacterial in fection or co-infection wi th other viruses. Negati ve results do not preclude SA RS-CoV-2 infection andsh ould not be used as the archie e basis for patient managem entdecisions. Negative result s must be combined with o therclinical observations, p atient history, and epidemiological information. Detection of SA RS-CoV-2 RNA may be affected bysample collection meth ods, storage conditions, and /or stageof infection. Vi ral RNA mutations, vacc inations, antiviraltherap eutics, antibiotics, ch emotherapeutic orimmunosuppres kervin drugs have not been e valuated for effectson detec tion. Results are for the mariia ntification of SARS-CoV-2 RNA usingthe Delectable M2000 Sy stem under the FDA Emergency UseAuthorizatio n. The testing is perf ormed by personneltraine d in the procedures for the Delectable M2000 molecular diagnostic SARS-CoV-2 assa y in vitro.
[2020-10-03] LABS: Absolute Lymphocytes (CBC) 3.2 K/uL (0.7-4.9); Basophils % 0.7 % (0-1.3); Hematocrit 34.9 % (36.0-45.0); Lymphocytes % 23.2 % (15.3-44.8); MPV 7.2 fL (7.6-11.3); RBC Red Blood Cell Count 4.79 M/uL (3.86-4.86)
[2020-10-03 00:04] LABS: Albumin 3.9 g/dL (3.4-5.0); Bilirubin Direct 0.1 mg/dL (0-0.2); Bilirubin Total 0.3 mg/dL (0.2-1.0); Potassium 3.5 mmol/L (3.5-5.1); Protein, Total 10.2 g/dL (6.4-8.2)
[2020-10-03] MEDS ORDERED: NA CHLORIDE 0.9% 2,000 ML ONE (00:06)
[2020-10-03 00:18] LABS: Urine Blood 2+ (NEG); Urine Glucose TRACE (NEG); Urine Protein 1+ (NEG); Urine Specific Gravity >1.030 (1.005-1.030); Urine pH 5.5 (5.0-7.0)
[2020-10-03 00:18] LABS: Urine Bacteria 20-50 /HPF (<20); Urine Mucus 4+ /HPF (NONE SEEN); Urine RBC <5 /HPF (NONE SEEN)
[2020-10-03] MEDS ORDERED: MORPHINE 2 MG/ML SYR ONE (00:23)
[2020-10-03] MEDS ORDERED: FAMOTIDINE 20 MG/2 ML VIAL IV ONE (00:23)
[2020-10-03] MEDS ORDERED: ONDANSETRON 4 MG/2 ML VIAL ONE (00:24)
[2020-10-03] MEDS ORDERED: MAGNES/ALUMIN/SIMET 30ML UCUP ONE (00:24)
[2020-10-03] MEDS ORDERED: LIDOCAINE VISCOUS 2% SOLN 15 ML UDC ONE (00:24)
--- NOTE | 2020-10-03 02:33 | EDPHYS ---
Physician Documentation [facility] Name: Umberto Benson Age: 30 yrs Sex: Female : 1990 Arrival Date: 10/02/2020 Time: 22:28 Bed 19 Private MD: ED Physician Brandon Hanley HPI: 10/03 00:08 This 30 yrs old Other Female presents to ER via Ambulatory with complaints of Shortness ma2 Of Breath, Dizziness. 00:08 The patient has shortness of breath at rest. Onset: The symptoms/episode began/occurred ma2 gradually, 1 week(s) ago. Associated signs and symptoms: Pertinent negatives: productive cough, fever, loss of consciousness, numbness in extremities. Severity of symptoms: At their worst the symptoms were moderate in the emergency department the symptoms are unchanged. The patient has not experienced similar symptoms in the past. s/p gastric sleev . 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 - Social history:: Smoking status: Patient denies any tobacco usage or history of. - Family history:: not pertinent. ROS: 10/03 00:08 Constitutional: Negative for fever, chills, and weight loss. ma2 All other systems are negative. Exam: 00:08 Constitutional: This is a well developed, well nourished patient who is awake, alert, ma2 and in no acute distress. Head/Face: Normocephalic, atraumatic. Eyes: Pupils equal round and reactive to light, extra-ocular motions intact. Lids and lashes normal. Conjunctiva and sclera are non-icteric and not injected. Cornea within normal limits. Periorbital areas with no swelling, redness, or edema. ENT: Nares patent. No nasal discharge, no septal abnormalities noted. Tympanic membranes are normal and external auditory canals are clear. Oropharynx with no redness, swelling, or masses, exudates, or evidence of obstruction, uvula midline. Mucous membranes moist. Neck: Trachea midline, no thyromegaly or masses palpated, and no cervical lymphadenopathy. Supple, full range of motion without nuchal rigidity, or vertebral point tenderness. No Meningismus. Chest/axilla: Normal chest wall appearance and motion. Nontender with no deformity. No lesions are appreciated. Cardiovascular: Regular rate and rhythm with a normal S1 and S2. No gallops, murmurs, or rubs. Normal PMI, no JVD. No pulse deficits. Respiratory: Lungs have equal breath sounds bilaterally, clear to auscultation and percussion. No rales, rhonchi or wheezes noted. No increased work of breathing, no retractions or nasal flaring. Abdomen/GI: surgical sites are dry and partially healed.. Soft, non-tender, with normal bowel sounds. No distension or tympany. No guarding or rebound. No evidence of tenderness throughout. Back: No spinal tenderness. No costovertebral tenderness. Full range of motion. Skin: Warm, dry with normal turgor. Normal color with no rashes, no lesions, and no evidence of cellulitis. MS/ Extremity: Pulses equal, no cyanosis. Neurovascular intact. Full, normal range of motion. Neuro: Awake and alert, GCS 15, oriented to person, place, time, and situation. Cranial nerves II-XII grossly intact. Motor strength 5/5 in all extremities. Sensory grossly intact. Cerebellar exam normal. Normal gait. Vital Signs: 10/02 22:51 BP 158 / 82; Pulse 87; Resp 16; Pulse Ox 100% on R/A; sg 10/03 00:05 BP 144 / 99; Pulse 70; Resp 18; Pulse Ox 100% on R/A; ll2 02:00 BP 144 / 99; Pulse 66; Resp 18; Temp 98.7; Pulse Ox 99% ; ll2 MDM: 10/02 23:26 Patient medically screened. co2 10/03 00:08 Differential diagnosis: gastritis vs gerd vs surgical failure vs leak. co2 02:32 Data reviewed: vital signs, nurses notes, EMS record. Response to treatment: the ma2 patient's symptoms have resolved after treatment. 10/02 23:23 Order name: Urine Culture [facility] 10/02 23:23 Order name: Urine Microscopic Only; Complete Time: 01:13 snw 10/02 23:27 Order name: Basic Metabolic Panel; Complete Time: : ma2 10/02 23:27 Order name: CBC with Diff; Complete Time: 01:13 co2 10/02 23:27 Order name: Hepatic Function; Complete Time: 01:13 ma2 10/02 23:27 Order name: Lipase; Complete Time: 01:13 co2 10/02 23:54 Order name: Urine Dipstick--Ancillary (enter results); Complete Time: 01:13 2 10/02 23:54 Order name: Urine --Ancillary (enter results); Complete Time: 01:13 2 10/03 00:00 Order name: CT Abd/Pelvis - IV Contrast Only ma2 10/02 23:23 Order name: Urine Test (obtain specimen); Complete Time: 23:53 snw 10/02 23:23 Order name: Urine Dipstick-Ancillary (obtain specimen); Complete Time: 23:53 snw 10/02 23:27 Order name: IV Saline Lock; Complete Time: 23:53 co2 10/02 23:27 Order name: Labs collected and sent; Complete Time: 23:53 ma2 Administered Medications: 10/02 23:53 Drug: NS 0.9% 2000 ml Route: IV; Rate: 1 bolus; Site: right antecubital; 2 10/03 01:30 Follow up: Response: No adverse reaction; IV Status: Completed infusion; IV Intake: ll2 2000ml 00:16 Drug: Pepcid 20 mg Route: IVP; Site: right antecubital; ll2 01:16 Follow up: Response: No adverse reaction ll2 00:16 Drug: morphine 4 mg Route: IVP; Site: right antecubital; ll2 01:16 Follow up: Response: No adverse reaction; RASS: Alert and Calm (0) ll2 00:16 Drug: Zofran (Ondansetron) 4 mg Route: IVP; Site: right antecubital; ll2 01:16 Follow up: Response: No adverse reaction ll2 00:16 Drug: GI Cocktail without - (Maalox Suspension 30 ml, Lidocaine Liquid 2 % 15 ll2 ml) Route: PO; 01:16 Follow up: Response: No adverse reaction 2 Disposition: 10/03/20 02:33 Discharged to Home. Impression: Vomiting. - Condition is Stable. - Discharge Instructions: Nausea and Vomiting, Adult. - Prescriptions for Zofran 4 mg Oral Tablet - take 1 tablet by ORAL route every 12 hours As needed; 20 tablet. Diclofenac Sodium 75 mg Oral Tablet Sustained Release - take 1 tablet by ORAL route 2 times per day; 30 tablet. - Medication Reconciliation Form, Thank You Letter, Antibiotic Education, Prescription Opioid Use form. - Follow up: Private Physician; When: Tomorrow; Reason: Continuance of care. Signatures: Dispatcher [employer] EDWang Godoy RN RN Sanam Marie, SERVICENOW ADMINISTRATOR DEVELOPER-C SERVICENOW ADMINISTRATOR DEVELOPER-Floriw Brandon Hanley MD MD ma2 Jessica Cha RN RN ll2 Corrections: (The following items were deleted from the chart) 02:53 02:33 10/03/2020 02:33 Discharged to Home. Impression: Vomiting. Condition is Stable. ll2 Prescriptions for Zofran 4 mg Oral Tablet - take 1 tablet by ORAL route every 12 hours As needed; 20 tablet, Diclofenac Sodium 75 mg Oral Tablet Sustained Release - take 1 tablet by ORAL route 2 times per day; 30 tablet. and Forms are Medication Reconciliation Form, Thank You Letter, Antibiotic Education, Prescription Opioid Use. Follow up: Private Physician; When: Tomorrow; Reason: Continuance of care. ma2
--- NOTE | 2020-10-03 02:33 | ER ---
Nurse's Notes [facility] Name: Umberto Benson Age: 30 yrs Sex: Female : 1990 Arrival Date: 10/02/2020 Time: 22:28 Bed 19 Private MD: Diagnosis: Vomiting Presentation: 10/02 22:51 Acuity: NEVILLE 3 sg 22:51 Chief complaint: Patient states: I recently had the gastric sleeve procedure with a sg provider out of [place], since the procedure I have not been able to really eat or drink, so Im thinking maybe Im dehydrated with some shortness of breath and dizziness, no other symptoms reported for triage. Coronavirus screen: Client denies travel out of the [place] in the last 14 days. At this time, the client does not indicate any symptoms associated with coronavirus-19. Ebola Screen: Patient negative for fever greater than or equal to 101.5 degrees Fahrenheit, and additional compatible Ebola Virus Disease symptoms Patient denies exposure to infectious person. Patient denies travel to an Ebola-affected area in the 21 days before illness onset. No symptoms or risks identified at this time. Initial Sepsis Screen: Does the patient meet any 2 criteria? No. Patient's initial sepsis screen is negative. Does the patient have a suspected source of infection? No. Patient's initial sepsis screen is negative. Risk Assessment: Do you want to hurt yourself or someone else? Patient reports no desire to harm self or others. Onset of symptoms was October 02, 2020. Transition of care: patient was not received from another setting of care. 22:51 Method Of Arrival: Ambulatory sg Triage Assessment: 23:56 General: Appears in no apparent distress. Behavior is calm, cooperative, appropriate ll2 for age. 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 - Social history:: Smoking status: Patient denies any tobacco usage or history of. - Family history:: not pertinent. Screenin:32 Abuse screen: Denies threats or abuse. Nutritional screening: No deficits noted. ll2 Tuberculosis screening: No symptoms or risk factors identified. Fall Risk None identified. Assessment: 23:31 General: Appears in no apparent distress. Behavior is calm, cooperative, appropriate ll2 for age. Neuro: Level of Consciousness is awake, alert, obeys commands, Oriented to person, place, time, situation. Respiratory: Airway is patent Respiratory effort is even, unlabored, Respiratory pattern is regular, symmetrical. GI: No signs and/or symptoms were reported involving the gastrointestinal system. : No signs and/or symptoms were reported regarding the genitourinary system. EENT: No signs and/or symptoms were reported regarding the EENT system. Derm: Skin is intact, is healthy with good turgor, Skin is dry, Skin is normal, Skin temperature is warm. Musculoskeletal: Circulation, motion, and sensation intact. Range of motion: intact in all extremities. 23:54 Pain: Complains of pain in abdomen incision soliz noted on ABD pt states she had a ll2 gastric sleeve surgery 1 week ago. Cardiovascular: Rhythm is regular. Respiratory: Breath sounds are clear bilaterally. 10/03 01:00 Reassessment: Patient and/or family updated on plan of care and expected duration. Pain ll2 level reassessed. Patient is alert, oriented x 3, equal unlabored respirations, skin warm/dry/pink. 02:51 Reassessment: Patient and/or family updated on plan of care and expected duration. Pain ll2 level reassessed. Patient is alert, oriented x 3, equal unlabored respirations, skin warm/dry/pink. ERD discussed plans of D/C with pt at bedside. Vital Signs: 10/02 22:51 BP 158 / 82; Pulse 87; Resp 16; Pulse Ox 100% on R/A; sg 10/03 00:05 BP 144 / 99; Pulse 70; Resp 18; Pulse Ox 100% on R/A; ll2 02:00 BP 144 / 99; Pulse 66; Resp 18; Temp 98.7; Pulse Ox 99% ; ll2 ED Course: 10/02 22:28 Patient arrived in ED. rg4 22:51 Triage completed. sg 22:54 Arm band placed on Patient placed in waiting room, in view of staff members, Patient sg notified of wait time. 23:26 Brandon Hanley MD is Attending Physician. ma2 23:28 Jessica Cha, CHERYL is Primary Nurse. ll2 23:55 Patient has correct armband on for positive identification. Pulse ox on. NIBP on. ll2 23:55 Initial lab(s) drawn, by me, sent to lab. Urine collected: clean catch specimen, clear. ll2 Inserted saline lock: 20 gauge in right antecubital area, using aseptic technique. Blood collected. 10/03 01:53 CT Abd/Pelvis - IV Contrast Only In Process Unspecified. EDMS 02:53 No provider procedures requiring assistance completed. IV discontinued, intact, ll2 bleeding controlled, No redness/swelling at site. Pressure dressing applied. Administered Medications: 10/02 23:53 Drug: NS 0.9% 2000 ml Route: IV; Rate: 1 bolus; Site: right antecubital; ll2 10/03 01:30 Follow up: Response: No adverse reaction; IV Status: Completed infusion; IV Intake: ll2 2000ml 00:16 Drug: Pepcid 20 mg Route: IVP; Site: right antecubital; ll2 01:16 Follow up: Response: No adverse reaction ll2 00:16 Drug: morphine 4 mg Route: IVP; Site: right antecubital; ll2 01:16 Follow up: Response: No adverse reaction; RASS: Alert and Calm (0) ll2 00:16 Drug: Zofran (Ondansetron) 4 mg Route: IVP; Site: right antecubital; ll2 01:16 Follow up: Response: No adverse reaction ll2 00:16 Drug: GI Cocktail without - (Maalox Suspension 30 ml, Lidocaine Liquid 2 % 15 ll2 ml) Route: PO; 01:16 Follow up: Response: No adverse reaction ll2 Intake: 01:30 IV: 2000ml; Total: 2000ml. ll2 Outcome: 02:33 Discharge ordered by . ma2 02:53 Discharged to home ambulatory. ll2 02:53 Condition: stable 02:53 Discharge instructions given to patient, Instructed on discharge instructions, follow up and referral plans. medication usage, Demonstrated understanding of instructions, follow-up care, medications, Prescriptions given X 2. 02:53 Patient left the ED. ll2 Addendum: 10/08/2020 12:49 Addendum: Culture Results: Positive urine culture. Patient was not prescribed d m5 antibiotics at discharge. Report given to YOSEF for further evaluation and then to exhauster engineer for follow up with patient. Prescription called-in to pharmacy of choice. Augmentin 875 mg 1 tab PO BID for 7 days called in by me for TANA Anders to [facility] [place]. Signatures: Dispatcher [employer] EDMarylou Mckinney RN RN dm5 aWng Kim RN RN Annemarie Carrera 4 Brandon Hanley MD MD ma2 Jessica Cha RN RN ll2 Corrections: (The following items were deleted from the chart) 10/02 22:54 22:54 Arm band placed on Patient placed in waiting room, in view of staff members, maureen reddy
[2020-10-03 03:00] VITALS: BP 144/99
[2020-10-03 03:11] VITALS: TEMP 98.7; O2SAT 99
--- NOTE | 2020-10-03 13:28 | RAD REPORT ---
EXAM DESCRIPTION: CT - Abdomen Pelvis W Contrast - 10/03/2020 6:39 am CLINICAL HISTORY: ABD PAIN COMPARISON: None Available. TECHNIQUE: CT of the abdomen and pelvis performed following IV administration of iodinated contras t. FINDINGS: Lung Bases: The visualized lung bases are clear. Bones: Degenerative endplate spondylosis of the spine. Abdomen: Liver: The liver has normal size and density. No intrahepatic biliary dilatation. Gallbladder: No calcified gallstones. Spleen, Pancreas, and Adrenal Glands: The spleen, pancreas, and adrenal glands are unremarkable. Kidneys: No hydronephrosis or obstructing calculus. Vasculature: The aorta and IVC have normal caliber and position. The portal vein is patent. The pro ximal visceral and renal arteries are patent. Stomach: Gastric sleeve surgery. Small hiatal hernia. Other: No free intraperitoneal air. No free fluid or lymphadenopathy. Minimal fat stranding in th e periumbilical and right anterior abdominal subcutaneous soft tissues may be related to recent surge ry. Pelvis: Bladder: Urinary bladder is unremarkable. Bowel: No dilated loops of large or small bowel. Appendix: Normal appendix. Pelvis: Uterus is not large. IMPRESSION: 1. No acute inflammatory or obstructive process identified. This exam was performed according to our departmental dose-optimization program, which includes autom ated exposure control, adjustment of the mA and/or kV according to patient size and/or use of iterati ve reconstruction technique. Electronically signed by: Rajendra Ribeiro 10/03/2020 2:11 AM INTERNATIONAL AFFAIRS VICE PRESIDENT Due to temporary technical issues with the PACS/Fluency reporting system, reports are being signed by the in house radiologists without review as a courtesy to insure prompt reporting. The interpreting radiologist is fully responsible for the content of the report.
== END 2020-10-03 02:53 | disposition home or self-care (01) ==
LOC: ER 22:28
DX: R11.2 Nausea with vomiting, unspecified (principal); Z98.84 Bariatric surgery status; I10 Essential (primary) hypertension
CPT/HCPCS: 36415; 74177; 80048; 80076; 81003; 81015; 81025; 83690; 85025; 87077; 87086; 87088; 87186; 96361; 96374; 96375; 99284; J2270; J2405